=== PATIENT | female | born 1995 | race African-American/Black ===

== ENCOUNTER 2019-03-30 01:32 | Emergency (ER) | payer SELFPAY ==
[~2019-03-30] VITALS: Ht 162.6 cm; Wt 64.0 kg
[2019-03-30] MEDS ORDERED: SODIUM CHLORIDE 0.9% 1,000 ML IV ONE (02:34)
[2019-03-30] MEDS ORDERED: ONDANSETRON HCL 4MG/2ML INJ IV STA (02:34)
[2019-03-30] MEDS ORDERED: KETOROLAC 15MG/ML VIAL IV ONE (02:45)
[2019-03-30 02:50] LABS: HEMATOCRIT. 41.5 % (36.0-48.0); HEMOGLOBIN. 14.4 g/dL (12.0-16.0); MEAN CORPUSCULAR HEMOGLOBIN 30.8 pg (28.0-32.0); MEAN CORPUSCULAR VOLUME 88.7 fL (81.0-99.0); MEAN PLATELET VOLUME 8.5 fl (7.4-10.4); PLATELET 247 x1000/uL (130-400); RED BLOOD CELL COUNT 4.68 mill/uL (4.2-5.4); RED CELL DISTRIBUTION WIDTH 12.6 % (11.6-14.6)
[2019-03-30 02:55] LABS: CHLORIDE 106 mEq/L (98-107)
[2019-03-30 03:50] LABS: PLATELET ESTIMATE NORMAL
[2019-03-30 05:58] VITALS: BP 115/69
== END 2019-03-30 06:00 | disposition home or self-care (01) ==
LOC: ER 01:32
DX: R19.7 Diarrhea, unspecified (principal); R11.10 Vomiting, unspecified
CPT/HCPCS: 36415; 80053; 81025; 83690; 85025; 96361; 96374; 96375; 99283; J1885; J2405; J7030; Z7610